=== PATIENT | male | born 1995 | race Caucasian/White ===

== ENCOUNTER 2020-04-12 23:59 | Emergency (ER) | payer OTHER ==
[~2020-04-12] VITALS: Ht 167.6 cm; Wt 83.9 kg
[2020-04-13] MEDS ORDERED: ZOLOFT50 M1 PO (00:08)
[2020-04-13] MEDS ORDERED: DESYREL150 MG PO (00:09)
[2020-04-13 00:42] LABS: ABSOLUTE EOSINOPHILS 0.4 thou/uL (0.0-0.7); ABSOLUTE LYMPHOCYTES 2.9 thou/uL (0.8-5.3); ABSOLUTE MONOCYTES 0.7 thou/uL (0.0-1.2); ABSOLUTE NEUTROPHILS 4.2 thou/uL (1.6-8.1); BASOPHILS 0.5 %; EOSINOPHILS 4.4 %; HEMATOCRIT 44.3 % (42.0-52.0); HEMOGLOBIN 15.5 gm/dL (14.0-18.0); LYMPHOCYTES 35.5 %; MCH 31.7 pg (26.0-34.0); MCHC 35.1 g/dL (28.0-37.0); MCV 90.5 fL (80.0-100.0); MONOCYTES 8.3 %; MPV 8.8 fl. (7.2-11.1); NUCLEATED RBCS 0 /100WBC; PLATELET COUNT* 245 thou/uL (150-400); POLYS 51.3 %; RDW-CV 12.8 % (10.5-14.5); WBC 8.3 thou/uL (4.0-11.0)
[2020-04-13 00:46] LABS: CALCIUM 8.7 mg/dL (8.5-10.1); CREATININE 1.2 mg/dL (0.6-1.3); POTASSIUM 3.4 mmol/L (3.5-5.1)
[2020-04-13 00:47] LABS: PROTIME 10.5 Seconds (9.20-11.50)
[2020-04-13 00:56] LABS: ALBUMIN 4.4 g/dL (3.4-5.0); MAGNESIUM 1.9 mg/dL (1.8-2.4); TOTAL BILIRUBIN 0.4 mg/dL (<0.1-1.0); TOTAL PROTEIN 7.5 g/dL (6.4-8.2)
[2020-04-13 01:56] LABS: BE -4.1 mmol/L (-2 to +3); pH 7.323 (7.340-7.450)
[2020-04-13 01:59] LABS: PO2 43.4 mmHg (75.0-100.0)
[2020-04-13 02:43] LABS: URINE BILIRUBIN NEGATIVE (Negative); URINE BLOOD NEGATIVE (Negative); URINE CLARITY CLEAR; URINE COLOR YELLOW; URINE GLUCOSE-RANDOM NEGATIVE (Negative); URINE KETONES NEGATIVE (Negative); URINE LEUKOCYTES-REFLEX NEGATIVE (Negative); URINE NITRITE-REFLEX NEGATIVE (Negative); URINE PROTEIN NEGATIVE (Negative); URINE SPECIFIC GRAVITY <= 1.005 (1.005-1.030); URINE UROBILINOGEN 0.2 E.U./dl (0.2-1.0)
[2020-04-13 02:53] LABS: AMP/METHAMP Negative (Negative); BARBITURATES Negative (Negative); BENZODIAZEPINES Negative (Negative); COCAINE Negative (Negative); METHADONE Negative (Negative); OPIATES Negative (Negative); PCP Negative (Negative); THC POSITIVE (Negative)
[2020-04-13 04:28] VITALS: BP 115/72
--- NOTE | 2020-04-13 16:26 | EKG ---
[place] [address] ELECTROCARDIOGRAM REPORT Name: SALEEMSTACI GUERRERO Room: [facility]#: [id number] Admission: 04/12/20 Attend Phys: Discharge: 04/13/20 Date of : [birth year] Date of Service: 04/13/20 0038 Report #: [id number] THIS REPORT FOR: //name// [facility] [place] ED Test Date: 2020-04-13 Test Time: 00:38:48 Pat Name: STACI SALEEM Department: Room: Gender: S[employer] Operator: : 1995 Requested By: Jeimy Marte Order Number: [id number] MD: Bassem Graham Measurements Intervals [place] Rate: 71 P: 51 DC: 143 QRS: 41 QRSD: 83 T: 33 QT: 380 QTc: 413 Interpretive Statements Sinus rhythm ST elev, probable normal early repol pattern No previous ECG available for comparison Electronically Signed On 04-13-2020 16:26:28 CDT by Bassem Graham [email or web address] <ELECTRONICALLY SIGNED> By: Bassem Graham MD, [facility] 04/13/20 1626 0038 0038 Bassem Graham MD, [facility] /EPI
== END 2020-04-13 04:28 | disposition home or self-care (01) ==
LOC: M.ERS 23:59
PROVIDERS: Emergency Medicine
DX: S02.5XXA Fracture of tooth (traumatic), initial encounter for closed fracture (principal); S01.81XA Laceration without foreign body of other part of head, initial encounter; I95.9 Hypotension, unspecified; Z79.899 Other long term (current) drug therapy; W18.39XA Other fall on same level, initial encounter; Y93.89 Activity, other specified; Y92.89 Other specified places as the place of occurrence of the external cause; Y99.8 Other external cause status